=== PATIENT | female | born 1980 | race Caucasian/White ===

== ENCOUNTER 2017-06-10 09:42 | Day surgery (SDC) | payer MEDICAID ==
[~2017-06-10 09:42] MED LIST: Lactated Ringers 1,000 ML IV SCH; Lidocaine 2% 5 ML SDV ONE; Propofol 200 MG/20 ML SDV ONE
--- NOTE | 2017-06-10 10:25 | PCM.PREANE ---
Preanesthetic Assessment - Anesthesia/Transfusion/Family Hx Anesthesia History: Prior Anesthesia Without Reaction Family History of Anesthesia Reaction: No Transfusion History: No Prior Transfusion(s) Intubation History: Unknown - Review of Systems General: No Symptoms Pulmonary: No Symptoms Cardiovascular: No Symptoms Gastrointestinal: Other (hematemesis) Neurological: No Symptoms Other: Reports: None - Physical Assessment O2 Sat by Pulse Oximetry: 97 Respiratory Rate: 14 Vital Signs: Last Vital Signs Temp 36.4 C 06/10/17 09:51 Pulse 73 06/10/17 09:51 Resp 14 06/10/17 09:51 BP 149/97 H 06/10/17 09:51 Pulse Ox 97 06/10/17 09:51 Height: 1.63 m Weight: 107.048 kg ASA Class: 2 Mental Status: Alert & Oriented x3 Airway Class: Mallampati = 2 Dentition: Reports: Normal Dentition Thyro-Mental Finger Breadths: 2 Mouth Opening Finger Breadths: 3 ROM/Head Extension: Full Lungs: Clear to Auscultation, Normal Respiratory Effort Cardiovascular: Regular Rate, Regular Rhythm - Lab Values: Laboratory Last Values Urine HCG, Qual NEGATIVE (NEGATIVE) 06/10/17 09:44 - Allergies Allergies/Adverse Reactions: Allergies Allergy/AdvReac Type Severity Reaction Status Date / Time iodine Allergy Hives Verified 06/05/17 08:32 - Blood Blood Available: No - Anesthesia Plan Pre-Op Medication Ordered: None - Acknowledgements Anesthesia Type Planned: MAC Pt an Appropriate Candidate for the Planned Anesthesia: Yes Alternatives and Risks of Anesthesia Discussed w Pt/Guardian: Yes Pt/Guardian Understands and Agrees with Anesthesia Plan: Yes PreAnesthesia Questionnaire HEENT History: Reports: Other (See Below) Other HEENT History: wears glasses Cardiovascular History: Reports: Hypertension Respiratory History: Reports: None Gastrointestinal History: Reports: GERD, Other (See Below) (hematemesis) Genitourinary History: Reports: Other (See Below) Other Genitourinary History: ureteral reflux 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: Musculoskeletal History: Reports: Fracture Other Musculoskeletal History: hx fx wrist and leg Neurological History: Reports: Migraines Psychiatric History: Reports: Anxiety, Depression Endocrine/Metabolic History: Reports: Obesity/BMI 30+ Hematologic History: Reports: None Immunologic History: Reports: None Oncologic (Cancer) History: Reports: None Dermatologic History: Reports: Eczema - Infectious Disease History Infectious Disease History: Reports: Chicken Pox, MRSA - Past Surgical History Head Surgeries/Procedures: Reports: None Cardiovascular Surgical History: Reports: None Female Surgical History: Reports: Section, Other (See Below) Other Female Surgeries/Procedures: ureteroplasty Neurological Surgical History: Reports: None Musculoskeletal Surgical History: Reports: Other (See Below) Other Musculoskeletal Surgeries/Procedures:: removal of FB from left foot Oncologic Surgical History: Reports: None - SUBSTANCE USE Smoking Status *Q: Current Every Day Smoker (1 ppd) Tobacco Use Within Last Twelve Months: Cigarettes Days Per Week of Alcohol Use: 4 Number of Drinks Per Day: 3 Total Drinks Per Week: 12 Recreational Drug Use History: Yes Recreational Drug Type: Reports: Marijuana/Hashish - HOME MEDS Home Medications: Home Meds Aspirin/Acetaminophen/Caffeine [Eql Migraine Formula Caplet] 1 tab PO ASDIRECTED PRN 06/05/17 [History] Omeprazole 40 mg PO DAILY 06/05/17 [History] - CURRENT (IN HOUSE) MEDS Current Meds: Current Medications Lactated Ringer's (Ringers, Lactated) 1,000 mls @ 125 mls/hr IV ASDIRECTED NAKITA Discontinued Medications Lidocaine (Xylocaine-Mpf 2%) Confirm Administered Dose 5 ml .ROUTE .STK-MED ONE Stop: 06/10/17 07:25 Propofol (Diprivan 20 Ml) Confirm Administered Dose 400 mg .ROUTE .STK-MED ONE Stop: 06/10/17 07:25
[2017-06-10] MEDS ORDERED: Lactated Ringers 1,000 ML IV SCH (11:45)
--- NOTE | 2017-06-10 11:47 | PCM.OPNOTE ---
- General Post-Op/Procedure Note Date of Surgery/Procedure: 06/10/17 Operative Procedure(s): Esophagogastroduodenoscopy with biopsy Pre Op Diagnosis: Hematemesis Post-Op Diagnosis: Moderate acute gastritis without ulceration Anesthesia Technique: MAC (ASA II) Primary Surgeon: Clem Cardona Condition: Good Free Text/Narrative:: DICTATION [id number] CPT CODE [id number]
[2017-06-10 12:12] VITALS: BP 131/66
--- NOTE | 2017-06-10 12:49 | OR ---
SURGEON: Clem Cardona M.D. DATE OF PROCEDURE: 06/10/2017 OPERATION PERFORMED: Esophagogastroduodenoscopy with gastric biopsy. ANESTHESIA: MAC. ASA CLASSIFICATION: Two. PREOPERATIVE DIAGNOSIS: Hematemesis. POSTOPERATIVE DIAGNOSES: 1. Moderate acute gastritis. 2. Hiatal hernia. DESCRIPTION OF PROCEDURE: The patient was taken to the endoscopy room, positioned on the endoscopy table in the left lateral decubitus position. Time-out was called for appropriate identification of the patient and procedure. Monitored anesthesia care was provided. The bite block was placed between the patient's teeth. The gastroscope was inserted through the bite block and advanced without difficulty through the esophagus and stomach into the duodenum where examination was carried out in a retrograde fashion. The duodenum shows no acute inflammatory changes or ulcerations. The stomach does show gnhy-nm-fuzcpylk gastritis. Antral biopsies were obtained to look for the presence of Helicobacter pylori. The gastroscope was then retroflexed to visualize the proximal stomach. No significant ulcerations or inflammatory changes were noted proximally. The gastroscope was then straightened and slowly withdrawn. The patient does have a hiatal hernia. The GE junction was well defined and shows no acute inflammatory changes or ulcerations. The vocal cords were briefly visualized as the scope was withdrawn and noted to move symmetrically. The gastroscope was then removed with the patient having tolerated the procedure well. She was taken to recovery room in satisfactory condition. MATHEW ROJAS /[id number]
== END 2017-06-10 12:10 | disposition home or self-care (01) ==
LOC: MW.SDS 09:42
PROVIDERS: ATTEND Surgery
DX: K29.50 Unspecified chronic gastritis without bleeding (principal); K44.9 Diaphragmatic hernia without obstruction or gangrene; I10 Essential (primary) hypertension; E66.01 Morbid (severe) obesity due to excess calories; Z68.41 Body mass index [BMI] 40.0-44.9, adult; F17.210 Nicotine dependence, cigarettes, uncomplicated; G43.909 Migraine, unspecified, not intractable, without status migrainosus; F41.9 Anxiety disorder, unspecified; Z79.82 Long term (current) use of aspirin
CPT/HCPCS: 00731; 81025; 88305; 88312; J2704

== ENCOUNTER 2017-12-25 07:34 | Observation (INO) | payer MEDICAID ==
[2017-12-25] MEDS ORDERED: Sodium Chloride 0.9% 10 ML Syringe FLUSH PRN (07:38)
[2017-12-25] MEDS ORDERED: Labetalol 20 MG/4 ML Syringe IVPUSH ONE ×2 (07:38→08:30)
[2017-12-25] MEDS ORDERED: Sodium Chloride 0.9% 2.5 ML Syringe FLUSH PRN (07:38)
--- NOTE | 2017-12-25 07:45 | EDM.PDOC ---
ED HPI GENERAL MEDICAL PROBLEM - General Stated Complaint: DIZZINESS Time Seen by Provider: 12/25/17 07:36 - History of Present Illness INITIAL COMMENTS - FREE TEXT/NARRATIVE: HISTORY AND PHYSICAL: History of present illness: The patient is a 37-year-old female who says she has no stated medical history and follows with Dr. Zarco in the clinic but has been here in the ED in the past and I have reviewed some of those encounters and who presents via EMS for dizziness and not feeling like she can take a deep breath. The patient says she has been dizzy and off-balance for the last 3 days on and off but it was more consistent since this morning at 4:30 AM. She said she was sitting on the floor of her kitchen because she was afraid to get up because of her dizziness and lightheadedness. She did not pass out or black out and has no headache or visual changes. She denies chest pain but says that when she takes a deep breath she feels like she can't get much air and that there is pressure with the breathing but not chest pain in and of itself. She has no abdominal pain nausea or vomiting no focal weakness or neurosensory changes. The patient says she's been under a lot of stress with her mother's illness since December 09 and has been drinking alcohol every night with that but not in excess. She did drink several drinks last evening. She has not followed with Dr. Zarco recently and denies as she says she is not sexually active. Currently in the ED she does not have chest pain and does not feel short of breath but says if she tries to take a big deep breath she feels that she can't get all the air and. She has no abdominal complaints no headache no neck pain she says that she feels woozy if she moves around but feels better here in the ED. She has not been taking any ocmi-fed-mzfsczm meds. She has no history of head trauma or neck trauma and has been eating and drinking normally. He has no history of cardiac pulmonary history and has no history of hypertension. Review of systems: As per history of present illness and below otherwise all systems reviewed and negative. Past medical history: As per history of present illness and as reviewed below otherwise noncontributory. Surgical history: As per history of present illness and as reviewed below otherwise noncontributory. Social history: No reported history of drug or alcohol abuse. Family history: As per history of present illness and as reviewed below otherwise noncontributory. Physical exam: General: Well-developed well-nourished overweight female who is nontoxic and speaking clearly in the ED. Vital signs have been reviewed by me HEENT: Atraumatic, normocephalic, pupils reactive, negative for conjunctival pallor or scleral icterus, mucous membranes tacky, throat clear, neck supple, nontender, trachea midline. No cervical adenopathy or nuchal rigidity Lungs: Clear to auscultation, breath sounds equal bilaterally, chest nontender. Heart: S1S2, regular rate and rhythm no overt murmurs Abdomen: Soft, nondistended, nontender. Negative for masses or hepatosplenomegaly. NABS Pelvis: Stable nontender. Genitourinary: Deferred. Rectal: Deferred. Extremities: Atraumatic, negative for cords or calf pain. Neurovascular unremarkable. No pedal edema or leg asymmetry Neuro: Awake, alert, oriented. Cranial nerves II through XII unremarkable. Cerebellum unremarkable. Motor and sensory unremarkable throughout. Exam nonfocal. No gross nystagmus on my exam Diagnostics: EKG CBC CMP troponin INR hCG UA alcohol level magnesium level CT scan of the head chest x-ray Therapeutics: IV O2 monitor IV fluids labetalol 0905: Case was discussed with our hospitalist Dr. Jackson and she would like admission to the ICU as an observation and a nitro drip to be started. I discussed all testing results with the patient in care plan and need for admission. Impression: Hypertensive urgency, new hypertension Definitive disposition and diagnosis as appropriate pending reevaluation and review of above. 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: Musculoskeletal History: Reports: Fracture Other Musculoskeletal History: hx fx wrist and leg Neurological History: Reports: Migraines Psychiatric History: Reports: Anxiety, Depression Endocrine/Metabolic History: Reports: Obesity/BMI 30+ Hematologic History: Reports: None Immunologic History: Reports: None Oncologic (Cancer) History: Reports: None Dermatologic History: Reports: Eczema - Infectious Disease History Infectious Disease History: Reports: Chicken Pox, MRSA - Past Surgical History Head Surgeries/Procedures: Reports: None Cardiovascular Surgical History: Reports: None Female Surgical History: Reports: Section, Other (See Below) Other Female Surgeries/Procedures: ureteroplasty Neurological Surgical History: Reports: None Musculoskeletal Surgical History: Reports: Other (See Below) Other Musculoskeletal Surgeries/Procedures:: removal of FB from left foot Oncologic Surgical History: Reports: None Social & Family History - Family History Family Medical History: Noncontributory - Caffeine Use Caffeine Use: Reports: Soda ED ROS GENERAL - Review of Systems Review Of Systems: ROS reveals no pertinent complaints other than HPI. ED EXAM, GENERAL - Physical Exam Exam: See Below (See dictation) Course - Vital Signs Last Recorded V/S: Last Vital Signs Temp 36.2 C 12/25/17 07:37 Pulse 80 12/25/17 07:58 Resp 16 12/25/17 07:58 BP 178/112 H 12/25/17 08:55 Pulse Ox 92 L 12/25/17 07:58 - Orders/Labs/Meds Orders: Active Orders 24 hr Category Date Time Status Patient Status [ADT] Stat ADT 12/25/17 09:07 Ordered Cardiac Monitoring [RC] . DIRECTED Care 12/25/17 07:37 Active EKG Documentation Completion [RC] STAT Care 12/25/17 07:37 Active Oxygen Therapy, ED [RC] ASDIRECTED Care 12/25/17 07:37 Active Pulse Oximetry [RC] ASDIRECTED Care 12/25/17 07:37 Active Chest 1V Frontal [CR] Stat Exams 12/25/17 07:37 Taken Head wo Cont [CT] Stat Exams 12/25/17 07:37 Taken UA W/MICROSCOPIC [URIN] Stat Lab 12/25/17 08:15 Received Nitroglycerin/D5W [Nitroglycerin 25 MG/D5W 250 ML] 250 Med 12/25/17 09:15 Ordered ml IV TITRATE Sodium Chloride 0.9% [Normal Saline] 1,000 ml Med 12/25/17 07:45 Active IV ASDIRECTED Sodium Chloride 0.9% [Saline Flush] Med 12/25/17 07:38 Active 10 ml FLUSH ASDIRECTED PRN Sodium Chloride 0.9% [Saline Flush] Med 12/25/17 07:38 Active 2.5 ml FLUSH ASDIRECTED PRN Saline Lock Insert [OM.PC] Stat Oth 12/25/17 07:37 Ordered Medication Orders Sodium Chloride (Normal Saline) 1,000 mls @ 50 mls/hr IV ASDIRECTED NAKITA Last Admin: 12/25/17 07:54 Dose: 50 mls/hr Sodium Chloride (Saline Flush) 10 ml FLUSH ASDIRECTED PRN PRN Reason: Keep Vein Open Last Admin: 12/25/17 07:56 Dose: 10 ml Sodium Chloride (Saline Flush) 2.5 ml FLUSH ASDIRECTED PRN PRN Reason: Keep Vein Open Last Admin: 12/25/17 07:56 Dose: 2.5 ml Labs: Laboratory Tests 12/25/17 12/25/17 12/25/17 Range/Units 07:30 07:30 07:30 WBC 9.94 (4.0-11.0) K/uL RBC 4.55 (4.30-5.90) M/uL Hgb 14.4 (12.0-16.0) g/dL Hct 41.5 (36.0-46.0) % MCV 91.2 (80.0-98.0) fL MCH 31.6 (27.0-32.0) pg MCHC 34.7 (31.0-37.0) g/dL RDW Std Deviation 43.9 (28.0-62.0) fl RDW Coeff of Reid 13 (11.0-15.0) % Plt Count 213 (150-400) K/uL MPV 10.00 (7.40-12.00) fL Neut % (Auto) 75.2 (48.0-80.0) % Lymph % (Auto) 17.8 (16.0-40.0) % [place] % (Auto) 5.6 (0.0-15.0) % Eos % (Auto) 1.0 (0.0-7.0) % Baso % (Auto) 0.4 (0.0-1.5) % Neut # (Auto) 7.5 H (1.4-5.7) K/uL Lymph # (Auto) 1.8 (0.6-2.4) K/uL [place] # (Auto) 0.6 (0.0-0.8) K/uL Eos # (Auto) 0.1 (0.0-0.7) K/uL Baso # (Auto) 0.0 (0.0-0.1) K/uL Nucleated RBC % 0.0 /100WBC Nucleated RBCs # 0 K/uL INR 0.98 Sodium 137 (136-145) mmol/L Potassium 3.9 (3.5-5.1) mmol/L Chloride 103 (98-107) mmol/L Carbon Dioxide 26.1 (21.0-32.0) mmol/L BUN 14 (7.0-18.0) mg/dL Creatinine 1.0 (0.6-1.0) mg/dL Est Cr Clr Drug Dosing 67.80 mL/min Estimated GFR (MDRD) > 60.0 ml/min Glucose 99 (74-106) mg/dL Calcium 10.0 (8.5-10.1) mg/dL Magnesium 1.7 L (1.8-2.4) mg/dL Total Bilirubin 0.3 (0.2-1.0) mg/dL AST 30 (15-37) IU/L ALT 42 (14-63) IU/L Alkaline Phosphatase 75 (46-116) U/L Troponin I < 0.050 (0.000-0.056) ng/mL Total Protein 7.6 (6.4-8.2) g/dL Albumin 3.9 (3.4-5.0) g/dL Globulin 3.7 H (2.0-3.5) g/dL Albumin/Globulin Ratio 1.1 L (1.3-2.8) HCG, Qual (NEG) Ethyl Alcohol 3 mg/dL 12/25/17 Range/Units 07:30 WBC (4.0-11.0) K/uL RBC (4.30-5.90) M/uL Hgb (12.0-16.0) g/dL Hct (36.0-46.0) % MCV (80.0-98.0) fL MCH (27.0-32.0) pg MCHC (31.0-37.0) g/dL RDW Std Deviation (28.0-62.0) fl RDW Coeff of Reid (11.0-15.0) % Plt Count (150-400) K/uL MPV (7.40-12.00) fL Neut % (Auto) (48.0-80.0) % Lymph % (Auto) (16.0-40.0) % [place] % (Auto) (0.0-15.0) % Eos % (Auto) (0.0-7.0) % Baso % (Auto) (0.0-1.5) % Neut # (Auto) (1.4-5.7) K/uL Lymph # (Auto) (0.6-2.4) K/uL [place] # (Auto) (0.0-0.8) K/uL Eos # (Auto) (0.0-0.7) K/uL Baso # (Auto) (0.0-0.1) K/uL Nucleated RBC % /100WBC Nucleated RBCs # K/uL INR Sodium (136-145) mmol/L Potassium (3.5-5.1) mmol/L Chloride (98-107) mmol/L Carbon Dioxide (21.0-32.0) mmol/L BUN (7.0-18.0) mg/dL Creatinine (0.6-1.0) mg/dL Est Cr Clr Drug Dosing mL/min Estimated GFR (MDRD) ml/min Glucose (74-106) mg/dL Calcium (8.5-10.1) mg/dL Magnesium (1.8-2.4) mg/dL Total Bilirubin (0.2-1.0) mg/dL AST (15-37) IU/L ALT (14-63) IU/L Alkaline Phosphatase (46-116) U/L Troponin I (0.000-0.056) ng/mL Total Protein (6.4-8.2) g/dL Albumin (3.4-5.0) g/dL Globulin (2.0-3.5) g/dL Albumin/Globulin Ratio (1.3-2.8) HCG, Qual NEGATIVE (NEG) Ethyl Alcohol mg/dL Meds: Medications Generic Name Dose Route Start Last Admin Trade Name Freq PRN Reason Stop Dose Admin Sodium Chloride 1,000 mls @ 50 mls/hr 12/25/17 07:45 12/25/17 07:54 Normal Saline IV 50 mls/hr ASDIRECTED NAKITA Administration Sodium Chloride 10 ml 12/25/17 07:38 12/25/17 07:56 Saline Flush FLUSH 10 ml ASDIRECTED PRN Administration Keep Vein Open Sodium Chloride 2.5 ml 12/25/17 07:38 12/25/17 07:56 Saline Flush FLUSH 2.5 ml ASDIRECTED PRN Administration Keep Vein Open Discontinued Medications Generic Name Dose Route Start Last Admin Trade Name Freq PRN Reason Stop Dose Admin Labetalol HCl 10 mg 12/25/17 07:38 12/25/17 07:55 Normodyne IVPUSH 12/25/17 07:39 10 mg NOW ONE Administration Protocol Labetalol HCl 20 mg 12/25/17 08:30 12/25/17 08:35 Normodyne IVPUSH 12/25/17 08:31 20 mg NOW ONE Administration Protocol Departure - Departure Time of Disposition: 09:09 Disposition: Refer to Observation Condition: Good Clinical Impression: Hypertensive urgency - Discharge Information - My Orders Last 24 Hours: My Active Orders 12/25/17 07:37 Cardiac Monitoring [RC] . DIRECTED EKG Documentation Completion [RC] STAT Oxygen Therapy, ED [RC] ASDIRECTED Pulse Oximetry [RC] ASDIRECTED Chest 1V Frontal [CR] Stat Head wo Cont [CT] Stat Saline Lock Insert [OM.PC] Stat 12/25/17 07:38 Sodium Chloride 0.9% [Saline Flush] 10 ml FLUSH ASDIRECTED PRN Sodium Chloride 0.9% [Saline Flush] 2.5 ml FLUSH ASDIRECTED PRN 12/25/17 07:45 Sodium Chloride 0.9% [Normal Saline] 1,000 ml IV ASDIRECTED 12/25/17 08:15 UA W/MICROSCOPIC [URIN] Stat 12/25/17 09:07 Patient Status [ADT] Stat 12/25/17 09:15 Nitroglycerin/D5W [Nitroglycerin 25 MG/D5W 250 ML] 250 ml IV TITRATE - Assessment/Plan Last 24 Hours: My Active Orders 12/25/17 07:37 Cardiac Monitoring [RC] . DIRECTED EKG Documentation Completion [RC] STAT Oxygen Therapy, ED [RC] ASDIRECTED Pulse Oximetry [RC] ASDIRECTED Chest 1V Frontal [CR] Stat Head wo Cont [CT] Stat Saline Lock Insert [OM.PC] Stat 12/25/17 07:38 Sodium Chloride 0.9% [Saline Flush] 10 ml FLUSH ASDIRECTED PRN Sodium Chloride 0.9% [Saline Flush] 2.5 ml FLUSH ASDIRECTED PRN 12/25/17 07:45 Sodium Chloride 0.9% [Normal Saline] 1,000 ml IV ASDIRECTED 12/25/17 08:15 UA W/MICROSCOPIC [URIN] Stat 12/25/17 09:07 Patient Status [ADT] Stat 12/25/17 09:15 Nitroglycerin/D5W [Nitroglycerin 25 MG/D5W 250 ML] 250 ml IV TITRATE
[2017-12-25] MEDS: Sodium Chloride 0.9% 1,000 ML IV SCH (07:54)
[2017-12-25 08:09] LABS: CHLORIDE,CL 103 mmol/L (98-107); SODIUM,NA 137 mmol/L (136-145)
[2017-12-25] MEDS ORDERED: Nitroglycerin/D5W 25 MG/250 ML BOTTLE IV SCH (09:15)
[2017-12-25] MEDS ORDERED: Albuterol/Ipratropium 3.0-0.5 MG/3 ML Neb Soln NEB PRN (11:16)
[2017-12-25] MEDS ORDERED: Magnesium Sulfate/Water 2 GM in Premix Bag 1 BAG IV ONE (11:22)
[2017-12-25] MEDS: Enoxaparin 40 MG/0.4 ML Syringe SUBCUT SCH (11:54)
--- NOTE | 2017-12-25 13:13 | CT ---
EXAM DATE: 12/25/17 PATIENT'S AGE: 37 Patient: MAGDALENA OAKLEY Facility: [place], [place] Site . Site : 1980 Study: CT Head [id number]/22/2018 8:24:58 AM Ordering Physician: Anmol Balderrama Final Report: HISTORY: Dizziness. TECHNIQUE: Noncontrast head CT. COMPARISON: No prior. FINDINGS: There is no acute intracranial hemorrhage or acute ischemic infarct. No mass effect or midline shift. No hydrocephalus. No loss of clark-white differentiation. The mastoid air cells are clear. Paranasal sinuses are clear. No acute skull fracture. IMPRESSION: No acute intracranial disease. Dictated by Yogi Wood MD @ 12/25/2017 8:27:58 AM Please note that all CT scans at this facility use dose modulation, iterative reconstruction, and/or weight-based dosing when appropriate to reduce radiation dose to as low as reasonably achievable. Dictated by: Yogi Wood MD @ 12/25/2017 08:28:06 (Electronic Signature) Report Signed by Proxy. [facility]
--- NOTE | 2017-12-25 13:16 | CR ---
EXAM DATE: 12/25/17 PATIENT'S AGE: 37 Patient: MAGDALENA OAKLEY Facility: [place], [place] Site . Site : 1980 Study: XRay Chest [id number]/22/2018 8:32:27 AM Ordering Physician: Anmol Balderrama Final Report: HISTORY: Chest pain, shortness of breath. TECHNIQUE: One view of the chest. COMPARISON: No prior. FINDINGS: Cardiac size and pulmonary vasculature are within normal limits. There is no acute lung infiltrate or pulmonary edema. No pneumothorax or pleural effusion. No acute bony abnormality. IMPRESSION: No acute disease. Dictated by Yogi Wood MD @ 12/25/2017 8:43:59 AM Dictated by: Yogi Wood MD @ 12/25/2017 08:44:13 (Electronic Signature) Report Signed by Proxy. [facility]
[2017-12-25] MEDS ORDERED: Acetaminophen 325 MG Tab PO PRN (15:25)
[2017-12-25] MEDS: Labetalol 100 MG Tab PO SCH ×2 (15:40→21:13)
[2017-12-25] MEDS ORDERED: Lisinopril/Hydrochlorothiazide 10-12.5 MG Tab PO SCH (17:45)
[2017-12-25] MEDS ORDERED: hydrALAZINE 20 MG/ML SDV IVPUSH PRN (20:04)
[2017-12-25] MEDS: Lisinopril/Hydrochlorothiazide 10-12.5 MG Tab PO SCH (20:16)
[2017-12-25] MEDS ORDERED: Meclizine 25 MG Tab PO PRN (21:21)
--- NOTE | 2017-12-25 21:31 | PCM.SN ---
- Free Text/Narrative Note: [id number]
[2017-12-26] MEDS: Sodium Chloride 0.9% 1,000 ML IV SCH
[2017-12-26] MEDS: Lisinopril/Hydrochlorothiazide 10-12.5 MG Tab PO SCH (08:09)
[2017-12-26] MEDS: Labetalol 100 MG Tab PO SCH (08:09)
--- NOTE | 2017-12-26 08:23 | HP ---
DATE OF : 1980 PRIMARY CARE PHYSICIAN: None PCP HISTORY OF PRESENT ILLNESS: The patient is 37-year-old female, who presented to the emergency room because of tightness in the chest, and she said she could not think straight. The room was spinning around her, and the intensity of her tightness was 7/10 in intensity. No wheezing. She felt she could not breathe in. Her lungs were full. She woke up at 0400 in the morning, and her symptoms started at 0530 in the morning and lasted an hour to an hour and a half. She says that lately she feels very tired for the past week because her mom broke her leg, and she is taking care of her. She also drank in the evening 3 shots of vodka for the past week every day because she felt overwhelmed with taking care of her mom. Her dizziness is not related to position, she does not have any pain, and it lasts for 5 to 10 minutes and is severe. She has to sit on the floor because she cannot walk, and it is coming in waves. This started about 2 days ago, but now today it is worse. PAST MEDICAL HISTORY: 1. She had ureteral reflux and it was corrected with surgery. 2. Migraine headache. 3. . 4. Anxiety. 5. Depression. 6. She had childhood hypertension at age 14. 7. Also, she had hypertension in . ALLERGIES: She is allergic to iodine. PAST SURGICAL HISTORY: 1. . 2. Surgery for correction of ureteral reflux. 3. [place] tooth surgery. 4. Surgery for removal of a needle from her leg. SOCIAL HISTORY: Smoked 1 pack of cigarettes per day for 20 years. Alcohol, drinks occasionally, but for the past week she drank every day. Drugs use, marijuana every other day. FAMILY HISTORY: Her mom had thyroid disease. Her father had coronary artery disease. REVIEW OF SYSTEMS: A 12-point review of system is negative, except as in history of present illness. PHYSICAL EXAMINATION: VITAL SIGNS: After arrival in the emergency room, her temperature was 97.2, pulse rate 94, blood pressure 185/131, respiratory rate 18, oxygen saturation 97%. The patient received 2 doses of labetalol IV push in the ER, but her blood pressure did not drop, it stayed elevated. HEENT: Her head is atraumatic, normocephalic. Pupils are equal and reactive to light. NECK: Supple. No thyromegaly. No lymphadenopathy. HEART: S1, S2. Regular rhythm and rate. No murmurs. LUNGS: Clear to auscultation bilaterally. ABDOMEN: Soft, nontender. Positive bowel sounds. EXTREMITIES: No edema. NEUROLOGIC: She is alert and oriented x3. There are no gross focal neurological deficits. LABORATORY DATA: At admission; WBC 9.94, hemoglobin 14.4, hematocrit 41.5. INR 0.98. D-dimer 0.22. Platelet count is 213,000. Sodium 137, potassium 3.9, chloride 103, carbon dioxide 26.1, BUN 14, creatinine 1.0. Estimated creatinine clearance 67.8, glucose 98, calcium 10, magnesium 1.7, total bilirubin 0.3, AST 30, ALT 42, alkaline phosphatase 75. Troponin negative. BNP less than 15, total protein 7.6, albumin 3.9, globulin 3.7, albumin-globulin ratio 1.1, and TSH 2.43. test was negative. HCG qualitative negative. Urinalysis was negative. Ethyl alcohol less than 3. Chest x-ray showed cardiac size and pulmonary vasculature within normal limits. There is no acute pulmonary infiltrate or pulmonary edema. No pneumothorax, no pleural effusion, no acute bony abnormalities. No acute disease. EKG shows sinus rate at 84. ASSESSMENT AND PLAN: Hypertensive emergency. We will admit the patient to ICU with nitroglycerin drip, and we will titrate nitroglycerin to maintain pressures below 160 and below 90 and with the ICU consult, we will do a CT of the head of the patient. We will order a CT of the head. Currently, she does not have any signs of stroke. Her dizziness is gone. For her chest tightness, we will order serial troponins, and we will monitor the patient in telemetry. We will do lipid profile in the morning. We will order cardiac echo, and the patient will be started on 2 g sodium diet. When blood pressure will be stable, we will titrate the nitroglycerin down and will start the patient on labetalol 200 mg p.o. twice a day. We will adjust her blood pressure medication. For dizziness and vertigo, we will give the patient meclizine 25 mg p.o. three times a day p.r.n., and also for hypertensive emergency, albuterol catecholamine 24 hours. Catehcholamine aldosterone renin ratio, aldosterone level, and we will order TSH. Also, the patient has purple discoloration on her abdominal stria. We will order random cortisol level or 24 hours urine collection for cortisol. ANTOPET / MODL /[id number] Discharge summary Patient admitted in ICU yesterday with hypertensive emergency, she was on nitroglycerine drip . Her nitroglycerine drip was discontinued and she was started on labetalol 200 mg by mouth twice a day and lisinopril/HCTZ 10/12 0.5 by mouth daily. Her blood pressure was in 156, systolic and she had ordered aldosterone and aldosterone /creatinine ratio ( was sent out). Her dizziness resolved, she was discharged home with labetalol 200 mg by mouth 3 times a day and additional lisinopril/HCTZ 10/12 0.5 by mouth daily patient to follow-up with her PCP. She was also given prescription for renal arterial Doppler, and 24 hours urine collection for catecholamines and cortisol. Patient to follow-up with her PCP . her echocardiogram was normal MTDD
[2017-12-26] MEDS: Enoxaparin 40 MG/0.4 ML Syringe SUBCUT SCH (11:33)
[2017-12-26 11:52] VITALS: BP 148/96
[2017-12-27] MEDS ORDERED: Lisinopril/Hydrochlorothiazide 10-12.5 MG Tab PO SCH (09:00)
--- NOTE | 2017-12-27 17:48 | ECHO ---
The echocardiogram report can be seen in this patient's EMR (Electronic Medical Record) in the Reports section. The echocardiogram report has also been scanned into PACS and can be seen there as well. [facility]
== END 2017-12-26 12:00 | disposition home or self-care (01) ==
LOC: MW.ED 07:34 → MW.ICU 09:07
PROVIDERS: ADMIT Internal Medicine; ATTEND Internal Medicine
DX: I16.1 Hypertensive emergency (principal); I10 Essential (primary) hypertension; F17.210 Nicotine dependence, cigarettes, uncomplicated; E66.9 Obesity, unspecified; Z68.24 Body mass index [BMI] 24.0-24.9, adult; G43.909 Migraine, unspecified, not intractable, without status migrainosus; F32.9 Major depressive disorder, single episode, unspecified; F41.9 Anxiety disorder, unspecified
CPT/HCPCS: 36415; 70450; 70450-26; 71045; 71045-26; 80053; 81001; 82088; 83735; 83880; 84100; 84244; 84443; 84484; 84703; 85025; 85379; 85610; 93005; 93306; 96361; 96365; 96366; 96368; 96372; 96375; 96376; 99285-25; A9270-GY; G0378; G0480; J1650; J3475; J3490; J7040